=== PATIENT | female | born 1930 | race Two or more races ===

== ENCOUNTER → 2018-03-23 | Emergency (ER) | payer OTHER ==
[~2018-03-23] VITALS: Ht 157.5 cm; Wt 61.2 kg
[~2018-03-23] MED LIST: ALLOPURINOL100 MG; AMARYL 2MG; CIPRO500 MG; COZAAR100 MG; Flagyl PO; HYZAAR 100-251 UDTAB PO; INTESTINEX680 MG PO; JANUVIA100 MG; JANUVIA100 MG PO; LANTUS SOLOSTAR3 ML SQ; LEVAQUIN500 MG PO; METROPOL; NORVASC5 MG; PLAVIX75 MG; PROVENTIL3 ML/2.5 M IH; SEPTRA DS TABLE1 TAB PO; SIMVASTATIN40 MG; SYNTHROID88 MCG PO; Synthroid PO; TESSALON PERLE100 MG PO; TRAMADOL HCL-AP1 TAB PO; TUSSI PRES-B L120 M1 PO; TUSSI-PRES LIQ118 ML PO; ZITHROMAX TRI-500 MG PO; [UNRECOGNIZED DRUG - OTHER]
== END | disposition home or self-care (01) ==
LOC: ER 12:00
DX: K59.09 Other constipation (principal)

== ENCOUNTER 2018-04-09 10:35 | Emergency (ER) | payer OTHER ==
[~2018-04-09] VITALS: Ht 160 cm; Wt 61.2 kg
== END 2018-04-09 12:33 | disposition home or self-care (01) ==
LOC: ER 10:35
DX: R14.3 Flatulence (principal)

== ENCOUNTER 2018-04-12 07:35 | Emergency (ER) | payer OTHER ==
[~2018-04-12] VITALS: Ht 157.5 cm; Wt 61.2 kg
== END 2018-04-12 15:31 | disposition home or self-care (01) ==
LOC: ER 07:35
DX: K59.09 Other constipation (principal)

== ENCOUNTER 2021-04-06 09:57 | Inpatient (IN) | payer OTHER ==
[~2021-04-06] VITALS: Ht 157.5 cm; Wt 72.6 kg
[2021-04-06] MEDS ORDERED: TOPROL XL25 M1 (10:10)
== END 2021-04-21 20:46 | disposition other institution (70) | DRG 329 ==
LOC: ER 09:57 → SEC-K 18:27 → MEDI 18:27
PROVIDERS: Surgery; ADMIT Internal Medicine; ATTEND Internal Medicine
PROC: 8E0ZXY6 Isolation (ICD-10-PCS; 2021-04-09)
PROC: 30233N1 Transfusion of Nonautologous Red Blood Cells into Peripheral Vein, Percutaneous Approach (ICD-10-PCS; 2021-04-09)
PROC: 0D1L0Z4 Bypass Transverse Colon to Cutaneous, Open Approach (ICD-10-PCS; principal; 2021-04-10 12:45)
PROC: 0JD73ZZ Extraction of Back Subcutaneous Tissue and Fascia, Percutaneous Approach (ICD-10-PCS; 2021-04-15)
DX: C18.9 Malignant neoplasm of colon, unspecified (principal); L89.154 Pressure ulcer of sacral region, stage 4; C78.7 Secondary malignant neoplasm of liver and intrahepatic bile duct; C78.02 Secondary malignant neoplasm of left lung; C78.01 Secondary malignant neoplasm of right lung; C77.2 Secondary and unspecified malignant neoplasm of intra-abdominal lymph nodes; Z16.12 Extended spectrum beta lactamase (ESBL) resistance; I69.354 Hemiplegia and hemiparesis following cerebral infarction affecting left non-dominant side; I82.611 Acute embolism and thrombosis of superficial veins of right upper extremity; E03.8 Other specified hypothyroidism; I10 Essential (primary) hypertension; Z74.01 Bed confinement status; Z20.822 Contact with and (suspected) exposure to COVID-19; B96.20 Unspecified Escherichia coli [E. coli] as the cause of diseases classified elsewhere; G30.9 Alzheimer's disease, unspecified; F02.80 Dementia in other diseases classified elsewhere, unspecified severity, without behavioral disturbance, psychotic disturbance, mood disturbance, and anxiety; D63.0 Anemia in neoplastic disease